=== PATIENT | female | born 1970 | race African-American/Black ===

== ENCOUNTER 2017-06-17 17:28 | Emergency (ER) | payer SELFPAY ==
[~2017-06-17] VITALS: Ht 162.6 cm; Wt 80.0 kg
[~2017-06-17 17:28] MED LIST: FERR29TA; [UNRECOGNIZED DRUG - CODE]
[2017-06-17 17:31] VITALS: BP 177/92; PULSE 77; RESP 18; TEMP 97.8; O2SAT 96
[2017-06-17 21:03] VITALS: BP 189/96; PULSE 67; RESP 18; O2SAT 99
[2017-06-17] MEDS ORDERED: SODIUM CHLOR 0.9% 1000 ML INJ 1,000 ML IV SCH (21:12)
[2017-06-17] MEDS ORDERED: MORPHINE SULFATE 4 MG/ML INJ IV PUSH ONE (21:15)
[2017-06-17] MEDS ORDERED: SODIUM CHLORIDE 0.9% FLUSH 10 ML FLUSH IV FLUSH PRN (21:15)
[2017-06-17] MEDS ORDERED: ONDANSETRON HCL 4 MG/2 ML VIAL IVP ONE (21:15)
[2017-06-17 22:16] LABS: AUTOMATED NEUTROPHIL # 3.4 TH/MM3 (1.8-7.7); BASOPHIL % 0.6 % (0.0-2.0); EOSINOPHIL # 0.2 TH/MM3 (0-0.4); EOSINOPHIL % 2.5 % (0.0-4.0); HEMATOCRIT 37.8 % (35.0-46.0); HEMOGLOBIN 12.4 GM/DL (11.6-15.3); LYMPH % 37.6 % (9.0-44.0); LYMPHOCYTE # 2.5 TH/MM3 (1.0-4.8); MEAN CELL VOLUME 82.8 FL (80.0-100.0); MEAN CORPUSCULAR HEMOGLOBIN 27.1 PG (27.0-34.0); MEAN CORPUSCULAR HGB CONC 32.8 % (32.0-36.0); MEAN PLATELET VOLUME 7.8 FL (7.0-11.0); MONO % 7.2 % (0.0-8.0); MONOCYTE # 0.5 TH/MM3 (0-0.9); NEUT % 52.1 % (16.0-70.0); PLATELET COUNT 298 TH/MM3 (150-450); RED BLOOD COUNT 4.56 MIL/MM3 (4.00-5.30); RED CELL DISTRIBUTION WIDTH 14.2 % (11.6-17.2); WHITE BLOOD COUNT 6.5 TH/MM3 (4.0-11.0)
[2017-06-17] MEDS ORDERED: MORPHINE SULFATE 2 MG/ML INJ IV PUSH ONE (22:30)
[2017-06-17] MEDS ORDERED: MORPHINE SULFATE 2 MG/ML INJ IV ONE (22:30)
[2017-06-17 22:39] LABS: BILIRUBIN, URINE NEG (NEG); BLOOD, URINE TRACE (NEG); GLUCOSE,URINE NEG (NEG); KETONE, URINE NEG (NEG); NITRITE,URINE NEG (NEG); SQUAMOUS EPITHELIAL CELL URINE 1 /hpf (0-5); URINE COLOR LIGHT-YELLOW (YELLW/STRAW); URINE LEUKOCYTE ESTERASE NEG (NEG)
[2017-06-17 22:39] LABS: ALBUMIN 4.3 GM/DL (3.4-5.0); AST (GOT) 11 U/L (15-37); BICARBONATE 27.9 MEQ/L (21.0-32.0); BLOOD UREA NITROGEN 8 MG/DL (7-18); CALCIUM 8.7 MG/DL (8.5-10.1); CHLORIDE 104 MEQ/L (98-107); CREATININE 0.59 MG/DL (0.50-1.00); GLOMERULAR FILTRATION RATE 133 ML/MIN (>89); GLUCOSE,RANDOM 86 MG/DL (74-106); LIPASE 172 U/L (73-393); SODIUM (NA) 139 MEQ/L (136-145)
[2017-06-17 22:44] LABS: ALKALINE PHOSPHATASE 54 U/L (45-117); ALT (GPT) 15 U/L (10-53); TOTAL BILIRUBIN ADULT 0.6 MG/DL (0.2-1.0); TROPONIN I LESS THAN 0.02 NG/ML (0.02-0.05)
[2017-06-17 22:53] LABS: PROTHROMBIN TIME - PATIENT 10.5 SEC (9.8-11.6)
[2017-06-17] MEDS ORDERED: IOHEXOL 350 MG/ML 10 ML VIAL (for RAD DIAG) IVCONTRAST ONE (23:25)
[2017-06-17 23:30] VITALS: BP 170/87; PULSE 60; RESP 18; O2SAT 100
--- NOTE | 2017-06-18 00:20 | RADRPT ---
EXAM DATE/TIME: 06/17/2017 23:10 [facility] COMPARISON: No previous studies available for comparison. INDICATIONS : Abdominal distention. IV CONTRAST: 100 cc Omnipaque 350 (iohexol) IV ORAL CONTRAST: No oral contrast ingested. RADIATION DOSE: 8.30 CTDIvol (mGy) MEDICAL HISTORY : Gastritis. SURGICAL HISTORY : Hysterectomy. ENCOUNTER: Initial ACUITY: 1 day PAIN SCALE: 3/10 LOCATION: abdomen TECHNIQUE: Volumetric scanning of the abdomen and pelvis was performed. Using automated exposure control and ad justment of the mA and/or kV according to patient size, radiation dose was kept as low as reasonably achievable to obtain optimal diagnostic quality images. DICOM format image data is available electro nically for review and comparison. FINDINGS: LOWER LUNGS: The visualized lower lungs are clear. LIVER: Homogeneous density without lesion. There is no dilation of the biliary tree. No calcified gallston es. SPLEEN: Normal size without lesion. PANCREAS: Within normal limits. KIDNEYS: 3 mm calculus in the lower pole of the left kidney. No evidence of hydronephrosis. 2 mm calculus in t he upper pole of the right kidney. No evidence of hydronephrosis. ADRENAL GLANDS: Within normal limits. VASCULAR: There is no aortic aneurysm. BOWEL/MESENTERY: Prominent amount of stool in the cecum. No bowel dilatation. No free air or free fluid. Likely append ix is seen and is within normal limits. ABDOMINAL WALL: Within normal limits. RETROPERITONEUM: There is no lymphadenopathy. BLADDER: No wall thickening or mass. REPRODUCTIVE: 1.9 cm oval hypodensity in the left adnexal region likely representing ovarian cyst. INGUINAL: There is no lymphadenopathy or hernia. MUSCULOSKELETAL: Mild osteoarthritic findings of the right hip. CONCLUSION: 1. Nonobstructing renal calculi. 2. Nonspecific prominent amount of stool in the colon. 3. Mild osteoarthritic findings right hip. 4. 1.9 cm left adnexal oval hypodensity likely representing ovarian cyst. Tyler Lai MD on June 18, 2017 at 0:10 Board Certified Radiologist. This report was verified electronically.
[2017-06-18] MEDS ORDERED: LACTULOSE SYRUP 20 GM/30 ML CUP PO ONE (00:45)
[2017-06-18] MEDS ORDERED: MAGNESIUM CITRATE SOLN 300 ML BTL PO ONE (00:45)
--- NOTE | 2017-06-18 00:46 | PD ---
HPI Chief Complaint: GI Complaint Time Seen by Provider: 20:59 Travel History International Travel<30 days: No Contact w/Intl Traveler<30days: No Traveled to known affect area: No History of Present Illness HPI Patient is a 46 year old female who comes in complaining of abdominal pain and bloating. She says it started last night and has been coming and going and moving around her abdomen. She denies nausea or vomiting. She has been eating without an issue. She says she has not noticed anything making it better or worse. She says she thinks she is constipated. She denies any urinary symptoms. FORMERLY [facility], [facility] Past Medical History Anemia: Yes Heart Rhythm Problems: No Cardiac Catheterization: No Cardiovascular Problems: No High Cholesterol: No Congestive Heart Failure: No Diabetes: No Hypertension: No Reproductive: Yes (TUBAL LIGATION) Myocardial Infarction: No ?: Not LMP: HYSTERECTOMY : 8 Para: 5 Miscarriage: 1 : 2 Dilation and Curettage (D&C): Yes Tubal Ligation: Yes Past Surgical History Section: Yes Coronary Artery Bypass Graft: No Hysterectomy: Yes ("2015") Social History Alcohol Use: No Tobacco Use: No Substance Use: No Allergies-Medications (Allergen,Severity, Reaction): Coded Allergies: No Known Allergies (Verified Allergy, Unknown, 06/17/17) Reported Meds & Prescriptions Reported Meds & Active Scripts Active No Active Prescriptions or Reported Medications Review of Systems Except as stated in HPI: all other systems reviewed are Neg General / Constitutional: No: Fever, Chills HENT: No: Headaches, Lightheadedness Cardiovascular: No: Chest Pain or Discomfort Respiratory: No: Shortness of Breath Gastrointestinal: Positive: Abdominal Pain, Constipation, No: Nausea, Vomiting Genitourinary: No: Dysuria Musculoskeletal: No: Myalgias, Edema Skin: No Rash, No Change in Pigmentation Neurologic: No: Weakness, Dizziness Physical Exam Narrative GENERAL: Awake and alert, in no acute distress. SKIN: Focused skin assessment warm/dry. HEAD: Atraumatic. Normocephalic. EYES: Pupils equal and round. No scleral icterus. ENT: Mucous membranes pink and moist. NECK: Trachea midline. No JVD. CARDIOVASCULAR: Regular rate and rhythm. No murmur appreciated. RESPIRATORY: No accessory muscle use. Clear to auscultation. Breath sounds equal bilaterally. GASTROINTESTINAL: Mild diffuse tenderness. No rebound or guarding. MUSCULOSKELETAL: No obvious deformities. No clubbing. No cyanosis. No edema. NEUROLOGICAL: Awake and alert. No obvious cranial nerve deficits. Motor grossly within normal limits. Normal speech. PSYCHIATRIC: Appropriate mood and affect; insight and judgment normal. Data Data Last Documented VS Vital Signs Date Time Temp Pulse Resp B/P (MAP) Pulse Ox O2 Delivery O2 Flow Rate FiO2 06/17/17 23:30 60 18 170/87 (114) 100 Room Air 06/17/17 17:31 97.8 Orders Orders Complete Blood Count With Diff (06/17/17 21:12) Comprehensive Metabolic Panel (06/17/17 21:12) Lipase (06/17/17 21:12) Prothrombin Time / Inr (Pt) (06/17/17 21:12) Act Partial Throm Time (Ptt) (06/17/17 21:12) Urinalysis - C+S If Indicated (06/17/17 21:12) Ct Abd/Pel W Iv Contrast(Rout) (06/17/17 21:12) Iv Access Insert/Monitor (06/17/17 21:12) Ecg Monitoring (06/17/17 21:12) Oximetry (06/17/17 21:12) Ondansetron Inj (Zofran Inj) (06/17/17 21:15) Sodium Chlor 0.9% 1000 Ml Inj (Ns 1000 M (06/17/17 21:12) Sodium Chloride 0.9% Flush (Ns Flush) (06/17/17 21:15) Electrocardiogram (06/17/17 21:12) Troponin I (06/17/17 21:12) Morphine Inj (Morphine Inj) (06/17/17 22:30) Iohexol 350 Inj (Omnipaque 350 Inj) (06/17/17 23:25) Lactulose Liq (Lactulose Liq) (06/18/17 00:45) Magnesium Citrate Liq (Citroma Liq) (06/18/17 00:45) Labs Laboratory Tests Test 06/17/17 21:30 06/17/17 22:10 White Blood Count 6.5 TH/MM3 Red Blood Count 4.56 MIL/MM3 Hemoglobin 12.4 GM/DL Hematocrit 37.8 % Mean Corpuscular Volume 82.8 FL Mean Corpuscular Hemoglobin 27.1 PG Mean Corpuscular Hemoglobin Concent 32.8 % Red Cell Distribution Width 14.2 % Platelet Count 298 TH/MM3 Mean Platelet Volume 7.8 FL Neutrophils (%) (Auto) 52.1 % Lymphocytes (%) (Auto) 37.6 % Monocytes (%) (Auto) 7.2 % Eosinophils (%) (Auto) 2.5 % Basophils (%) (Auto) 0.6 % Neutrophils # (Auto) 3.4 TH/MM3 Lymphocytes # (Auto) 2.5 TH/MM3 Monocytes # (Auto) 0.5 TH/MM3 Eosinophils # (Auto) 0.2 TH/MM3 Basophils # (Auto) 0.0 TH/MM3 CBC Comment DIFF FINAL Differential Comment Prothrombin Time 10.5 SEC Prothromb Time International Ratio 1.0 RATIO Activated Partial Thromboplast Time 26.2 SEC Blood Urea Nitrogen 8 MG/DL Creatinine 0.59 MG/DL Random Glucose 86 MG/DL Total Protein 8.0 GM/DL Albumin 4.3 GM/DL Calcium Level 8.7 MG/DL Alkaline Phosphatase 54 U/L Aspartate Amino Transf (AST/SGOT) 11 U/L Alanine Aminotransferase (ALT/SGPT) 15 U/L Total Bilirubin 0.6 MG/DL Sodium Level 139 MEQ/L Potassium Level 3.8 MEQ/L Chloride Level 104 MEQ/L Carbon Dioxide Level 27.9 MEQ/L Anion Gap 7 MEQ/L Estimat Glomerular Filtration Rate 133 ML/MIN Troponin I LESS THAN 0.02 NG/ML Lipase 172 U/L Urine Color LIGHT-YELLOW Urine Turbidity CLEAR Urine pH 7.0 Urine Specific [place] 1.007 Urine Protein NEG mg/dL Urine Glucose (UA) NEG mg/dL Urine Ketones NEG mg/dL Urine Occult Blood TRACE Urine Nitrite NEG Urine Bilirubin NEG Urine Urobilinogen LESS THAN 2.0 MG/DL Urine Leukocyte Esterase NEG Urine RBC 6 /hpf Urine WBC LESS THAN 1 /hpf Urine Squamous Epithelial Cells 1 /hpf Microscopic Urinalysis Comment CULT NOT INDICATED MDM Medical Decision Making Medical Screen Exam Complete: Yes Emergency Medical Condition: Yes Medical Record Reviewed: Yes Differential Diagnosis Constipation versus cholecystitis versus cholelithiasis versus gastritis Narrative Course Patient is a 46-year-old female comes in complaining of abdominal pain. Exam shows mild diffuse tenderness of the abdomen. IV established, labs sent. Labs show no acute abnormalities. CT abdomen and pelvis performed shows constipation as well as nonobstructing renal stones. CT also shows evidence of an ovarian cyst, which the patient is aware of and following with SENIOR CLIENT ADVISOR for. Last 24 hours Impressions Abdomen/Pelvis CT 06/17/172111 Signed Impressions: Service Date/Time: , June 17, 2017 23:10 - CONCLUSION: 1. Nonobstructing renal calculi. 2. Nonspecific prominent amount of stool in the colon. 3. Mild osteoarthritic findings right hip. 4. 1.9 cm left adnexal oval hypodensity likely representing ovarian cyst. Tyler Lai MD Given a laxative. Advised follow with her primary care doctor. Advised to return to the ED as needed for any worsening symptoms. Diagnosis Primary Impression: Constipation Qualified Codes: K59.00 - Constipation, unspecified Patient Instructions: Constipation (ED), General Instructions Additional Instructions: Follow-up with your primary care doctor. Return to the ED as needed for any worsening symptoms. Scripts No Active Prescriptions or Reported Meds Disposition: 01 DISCHARGE HOME Condition: Stable Kacie Butler MD Jun 18, 2017 00:46
--- NOTE | 2017-06-18 22:13 | EKG ---
Date Performed: 06/17/2017 Time Performed: 23:09:01 PTAGE: 46 years EKG: Sinus rhythm POSSIBLE LEFT ATRIAL ENLARGEMENT BORDERLINE ECG NO PREVIOUS TRACING DOCTOR: Magnus Sahni Interpretating Date/Time 06/18/2017 22:11:13
== END 2017-06-18 01:02 | disposition home or self-care (01) ==
LOC: NEPD 17:28
DX: K59.00 Constipation, unspecified (principal); R14.0 Abdominal distension (gaseous); D64.9 Anemia, unspecified; R94.31 Abnormal electrocardiogram [ECG] [EKG]
CPT/HCPCS: 74177; 80053; 81001; 83690; 84484; 85025; 85610; 85730; 93005; 96361; 96374; 96375; 99285; J2270; J2405; J7030; Q9967